=== PATIENT | male | born 2000 | race African-American/Black ===

== ENCOUNTER 2020-10-28 19:14 | Emergency (ER) | payer MEDICAID, SELFPAY ==
--- NOTE | ~2020-10-28 | XR_ITS ---
EXAMINATION: XR CHEST CLINICAL INFORMATION: Covid positive COMPARISON: None TECHNIQUE: Frontal view of the chest was obtained. FINDINGS: Scoliotic curvature of the spine. The lungs are well expanded. No consolidation, edema, or effusion. No pneumothorax. The cardiomediastinal silhouette is within normal limits. No acute osseous abnormality. XR/XR chest 1V IMPRESSION: Clear lungs.
[2020-10-28 19:42] VITALS: BP 153/99; PULSE 88; RESP 18; TEMP 37.9; O2SAT 98; BMI 21.8
[2020-10-28 20:05] LABS: COVID-19 Test Positive (Negative)
--- NOTE | 2020-10-28 22:59 | ED.GENADULT ---
HPI - General Adult General Chief complaint: General Medical Stated complaint: SOB/Dizzy Time Seen by Provider: 10/28/20 22:29 Source: patient Mode of arrival: ambulatory History of Present Illness HPI narrative: Patient with contact with COVID at home for about a week ago comes here for last 4 days complaining of dry cough body aches loss of smell low-grade fever dizziness saturating 98% on room air no chest pain Related Data Allergies Allergy/AdvReac Type Severity Reaction Status Date / Time No Known Allergies Allergy Verified 10/28/20 19:44 Review of Systems Review of Systems: Yes all other systems are reviewed and are negative FOR[facility] Past Medical History Medical History No known health problems Social History Social History Advance Directives: No Advance Directives Information Provided: No Physical Exam Vital Signs: Vital Signs: Last Vital Signs Temp 100.2 F 10/28/20 19:42 Pulse 88 10/28/20 19:42 Resp 18 10/28/20 19:42 BP 153/99 H 10/28/20 19:42 Pulse Ox 98 10/28/20 19:42 Body Mass Index 21.8 Appearance: Alert. Oriented X3. No acute distress. Eyes: No pallor icterus ENT: Pharynx normal. Oral Mucosa moist Neck: Normal inspection. Neck supple. CVS: Normal heart rate and rhythm. Pulses normal. Respiratory: No respiratory distress. Equal air entry bilateral, no wheezing/rales/rhonchi Abdomen: Soft and nontender. Bowel sounds are present, no mass palpable, no CVA tenderness Skin: Skin warm and dry. Normal skin color. Normal skin turgor. Extremities: No lower extremity edema. No calf tenderness Neuro: Oriented X 3. Medical Decision Making MDM Narrative Medical decision making narrative: Patient uncomplicated COVID-19 infection discharge patient home advised supportive treatment Lab Data Lab results reviewed: Yes I reviewed the patient's lab results. Labs: Lab Results 10/28/20 Range/Units 19:46 COVID-19 (KATHERIN) Positive A (Negative) COVID-19 Clin Com See Note Discharge Plan Discharge Clinical Impression: COVID-19 Patient Disposition: Home, Self-Care Instructions: COVID-19 (Coronavirus Disease 2019) (ED) Additional Instructions: Drink plenty of fluids, Tylenol for pain Rest at home keep social distancing for 2 weeks Report to the ER increase shortness of breath Interventions: ED Discharge Assessment Last Done: 10/28/20 23:08 Discharge Date/Time: 10/28/20 23:22
== END 2020-10-28 23:22 | disposition home or self-care (01) ==
PROVIDERS: Emergency Provider Internal Medicine
DX: U07.1 COVID-19 (principal); R06.02 Shortness of breath; R42 Dizziness and giddiness; Z79.899 Other long term (current) drug therapy
CPT/HCPCS: 36415; 71045; 87635; 99283